=== PATIENT | male | born 1960 | race Caucasian/White ===

== ENCOUNTER 2019-04-16 20:38 | Observation (INO) | payer OTHER, SELFPAY ==
[2019-04-16 20:39] VITALS: BP 124/81; PULSE 90; RESP 17; TEMP 37.4; O2SAT 96; BMI 22.6
--- NOTE | 2019-04-16 20:51 | CT_ITS ---
STUDY: CT ABDOMEN AND PELVIS WITH CONTRAST REASON FOR EXAM: Male, 58 years old. Abdominal pain beginning this morning. RADIATION DOSAGE (If Supplied By Facility): CTDIvol = ( 11.94 ) mGy, DLP = ( 710.72 ) mGycm TECHNIQUE: Transaxial images were obtained from the dome of the diaphragm to the symphysis pubis with oral contrast. 100 IV/Oral Isovue 300 was administered. Sagittal and coronal images were reconstructed. Individualized dose optimization techniques were used for this CT. COMPARISON: None. FINDINGS: The visualized lung bases are unremarkable. The visualized portions of the heart are within normal limits. Normal liver. Normal gallbladder and extrahepatic biliary system. Normal spleen. Normal pancreas. Normal bilateral adrenal glands. Normal right kidney. Normal left kidney. Normal visualized stomach. Normal small intestine. Normal colon. The appendix is thickened and enlarged in size. There is marked stranding in the right lower quadrant. Normal abdominal aorta. Normal inferior vena cava. Normal retroperitoneum. Normal urinary bladder. Normal prostate. There is no pelvic lymphadenopathy or mass. No free air or free fluid is seen within the peritoneal cavity. Normal abdominal wall. Normal osseous structures. CT/Abdomen/Pelvis WITH Contrast IMPRESSION: Uncomplicated appendicitis. N.B. : The above information has been verbally conveyed by Daryl Ojeda DO to Vu Sorensen MD, on 04/16/2019 22:57:29 (ET). Electronically Signed: Daryl Ojeda DO at 22:58 EDT Tel [phone], Service support ,
[2019-04-16 21:10] LABS: Absolute Lymphocyte Count 1.71 X10^3/ul (0.83-4.51); Absolute Neutrophil Count 8.6 X10^3/uL (2.0-7.7); Basophil# 0.01 X10^3/uL; Basophil% 0.1 % (0-1); Eosinophil# 0.04 X10^3/uL; Eosinophils% 0.4 % (0-5); Hematocrit 45.4 % (40-54); Hemoglobin 15.9 g/dl (13.0-16.5); Lymphocyte # 1.71 X10^3/ul (4.0); Lymphocyte % 15.1 % (19-41); Mean Corpuscular Hgb 32.1 pg (27.0-32.0); Mean Corpuscular Volume 91.5 fL (80-94); Mean Platelet Vol. 10.1 fl (6.2-12.0); Monocyte# 0.91 X10^3/uL; Neutrophil # 8.64 X10^3/uL (2.7-7.7); Neutrophil % 76.3 % (47-70); Platelet Count 157 K/mm3 (150-450); RBC Distribution Width CV 12.3 % (11.6-14.6); RBC Distribution Width SD 40.6 fl (35.1-43.9); Red Blood Count 4.96 M/mm3 (4.6-6.2); White Blood Count 11.3 K/mm3 (4.4-11.0)
[2019-04-16 21:11] LABS: POSITIVE COUNT NO; POSITIVE DIFFERENTIAL NO; POSITIVE MORPHOLOGY NO
[2019-04-16 21:28] LABS: ALB/GLOB Ratio 1.2 RATIO (0.9-2.4); AST(SGOT) 16 U/L (15-37); Alanine Aminotransfer ALT/SGPT 22 U/L (16-61); Alkaline Phosphatase 80 U/L (45-117); Anion Gap 3 (5-15); BUN 15 mg/dL (7-18); BUN/Creat Ratio 15.7 RATIO (10-20); Calcium,Total 9.3 mg/dL (8.5-10.1); Chloride 107 mmol/L (98-107); Creatinine, Serum 0.96 mg/dL (0.70-1.30); EST Glomerular Filtration Rate 86 mL/min (>60); Est Glom Filt Rate - Afr Amer 104 mL/min (>60); Estimated Creatinine Clearance 86.77 ml/min; Globulin 3.4 g/dL (2.2-4.2); Glucose 113 mg/dL (74-106); Potassium 3.6 mmol/L (3.5-5.1); Protein, Total 7.4 g/dL (6.4-8.2); Sodium Level 138 mmol/L (136-145)
[2019-04-16] MEDS: Morphine 4 MG/ML Syringe IV (21:40)
[2019-04-16] MEDS: Ondansetron 4 MG/2 ML Vial IV (21:40)
[2019-04-16] MEDS: 0.9% Normal Saline 1,000 ML 1000 ML IV (21:40)
--- NOTE | 2019-04-16 21:45 | ED.VIS.GEN ---
History of Present Illness Chief Complaint: Abd Pain Informant: Patient Onset: Today Context: Gradual Onset Timing: Continuous Current Severity: Moderate Maximum Severity: Severe Associated Symptoms: nausea Narrative: Patient presents to the emergency department with abdominal pain that has migrated to his right lower quadrant. The patient is otherwise healthy. He has no significant medical or surgical history. He states today, at about 630 this morning, he had some diffuse cramping abdominal pain. He states he is mildly constipated which is not his normal symptoms. He states throughout the day, the pain seemed to migrate to his right lower quadrant. He does admit to some chills and sweats. He is also been nauseated. He states he is never had symptoms like this before. Prior similar symptoms: No Recent Illness/Hospitalization: No Past Medical History - Allergies and Home Meds Allergies/Adverse Reactions: Allergies No Known Allergies Allergy (Verified 04/16/19 20:38) Primary Care Physician: Keith Vivas MD [Primary Care Provider] - Prior records reviewed: Yes Past Medical History: None Surgical History: no surgical history Lives: With Family Smoking Status: Never smoker Alcohol: None Drugs: None Review of Systems General: Reports: Chills Eyes: Denies: Visual changes - bilaterally, Diplopia ENT: Denies: Rhinorrhea, Sore throat Cardiovascular: Denies: Chest pain, Palpitations Respiratory: Denies: Dyspnea, Cough, Dyspnea on exertion Gastrointestinal: Reports: Abdominal pain, Nausea Genitourinary: Denies: Dysuria, Hematuria, Frequency Musculoskeletal: Denies: Back pain, Extremity Pain Skin: Denies: Rash, Wounds Neurological: Denies: Headache, Weakness, Numbness Psych: Denies: Depression Endocrine: Denies: Polyuria Physical Exam Vital Signs/Narrative: Vital Signs Temp Pulse Resp BP Pulse Ox 04/16/19 20:39 99.4 F H 90 17 124/81 H 96 Inital Vital Signs reviewed: Yes General: Well nourished, Well developed, No Acute Distress Head: Normocephalic, Atraumatic Eyes: Perrl, EOMI ENT: Moist mucous membranes, No rhinorrhea Neck: Supple, Nontender Cardiovascular: Regular rate, Regular rhythm, No murmurs Respiratory: No distress, CTA bilaterally, Chest nontender Abdomen: Soft, Nondistended, Normal bowel sounds, Tender, Rebound tenderness Back: Nontender, Normal Inspection Extremities: Nontender, No edema Skin: Normal color, No rash Neurological: Alert, Oriented x3, Cranial nerves II-XII grossly intact, Normal Strength, Normal Sensation Psychological: Normal affect, Normal Mood Diagnostic/Tx/Re-eval Clinical Impression(s) from Imaging Studies Abdomen/Pelvis CT 04/16/19 20:51 IMPRESSION: Uncomplicated appendicitis. N.B. : The above information has been verbally conveyed by Daryl Ojeda DO to Vu Sorensen MD, on 04/16/2019 22:57:29 (ET). Electronically Signed: Daryl Ojeda DO at 22:58 EDT Tel [phone], Service support , ADDENDUM: 04/16/19 230 IMPRESSION: Uncomplicated appendicitis. N.B. : The above information has been verbally conveyed by Daryl Ojeda DO to Vu Sorensen MD, on 04/16/2019 22:57:29 (ET). Electronically Signed: Daryl Ojeda DO at 22:58 EDT Tel [phone], Service support , Abnormal Lab Results 04/16/19 04/16/19 04/16/19 21:01 21:01 21:45 WBC 11.3 H RBC 4.96 Hgb 15.9 Hct 45.4 MCV 91.5 MCH 32.1 H MCHC 35.0 RDW 12.3 RDW Differential 40.6 Plt Count 157 MPV 10.1 Immature Gran % (Auto) 0.100 Neut % (Auto) 76.3 H Lymph % (Auto) 15.1 L [place] % (Auto) 8.0 Eos % (Auto) 0.4 Baso % (Auto) 0.1 Absolute Neuts (auto) 8.6 H Absolute Lymphs (auto) 1.71 Total Counted Not Reportable Sodium 138 Potassium 3.6 Chloride 107 Carbon Dioxide 28.0 Anion Gap 3 L BUN 15 Creatinine 0.96 Estim Creat Clear Calc 86.77 Est GFR (MDRD) Af Amer 104 Est GFR (MDRD) Non-Af 86 BUN/Creatinine Ratio 15.7 Glucose 113 H Calcium 9.3 Total Bilirubin 0.60 AST 16 ALT 22 Alkaline Phosphatase 80 Total Protein 7.4 Albumin 4.0 Globulin 3.4 Albumin/Globulin Ratio 1.2 Urine Color Yellow Urine Clarity Clear Urine pH 7.0 Ur Specific [place] 1.015 Urine Protein Negative Urine Glucose (UA) 250 H Urine Ketones 5 H Urine Occult Blood Negative Urine Nitrite Negative Urine Bilirubin Negative Urine Urobilinogen Normal Ur Leukocyte Esterase Negative Urine RBC 0-5 SEEN Urine WBC 0 SEEN Ur Squamous Epith Cells 0 SEEN Urine Bacteria RARE Urine Mucus RARE - Medical Decision Making Patient presents with pain that migrated to his right lower quadrant. He is tender in this area. He has had a low-grade fever and chills. My suspicion was for acute appendicitis. Screening labs were obtained. Patient does have a mild leukocytosis. CT does confirm acute appendicitis. The patient was covered with broad-spectrum antibiotics. I did discuss the patient with Dr. Gorman. He agrees with plan for admission plan will be for OR first thing in the morning. The patient is comfortable with this plan of care. ED Disposition - Plan for ED Patient: Disposition: Acute Care [facility] Diagnosis: Acute appendicitis Referrals: Keith Vivas MD [Primary Care Provider] -
[2019-04-16 21:51] LABS: Squamous Epithelial Cells - UA 0 SEEN /hpf (0-5); White Blood Cells 0 SEEN /hpf (0-5)
[2019-04-16 21:55] LABS: Color, Urine Yellow (Yellow); Glucose, Dipstick 250 mg/dl (Normal); Ketone-Dipstick 5 mg/dl (Negative); Leukocyte Esterase-Dipstick Negative /ul (Negative); Nitrite-Dipstick Negative (Negative); Occult Blood-Urine Negative /ul (Negative); Protein-Dipstick Negative (Negative); Specific Gravity, Urine 1.015 (1.002-1.030); Urine Bilirubin Dipstick Negative (Negative); Urine Clarity Clear (Clear); Urine Urobilinogen Normal (Normal)
[2019-04-16 22:03] LABS: Bacteria RARE /hpf (None Seen); Mucous, Urine RARE /hpf (<or=2+); Red Blood Cells-Urine 0-5 SEEN /hpf (0-5)
[2019-04-16] MEDS: HYDROmorphone 0.5 MG/0.5 ML SYRINGE IV (23:11)
[2019-04-16] MEDS: Lactated Ringers 1,000 ML 150 ML IV (23:11)
[2019-04-16 23:13] VITALS: BP 114/73; PULSE 78; RESP 16; TEMP 36.9; O2SAT 98
[2019-04-16 23:34] VITALS: BMI 23.3
[2019-04-16 23:42] VITALS: BP 96/57; PULSE 78; RESP 16; TEMP 36.5; O2SAT 96
[2019-04-17] VITALS (8 sets, daily range): BP systolic 95–110; BP diastolic 49–70; PULSE 63–79; RESP 14–16; TEMP 36.1–36.9; O2SAT 92–99; BMI 23.3
[2019-04-17] MEDS: 0.9% NaCl Peripheral Flush Adult/Peds IV ×3 (00:35→13:19)
[2019-04-17] MEDS: Lactated Ringers 1,000 ML 150 ML IV ×2 (00:35→05:22)
--- NOTE | 2019-04-17 04:00 | EKG12_ITS ---
Test Reason : AM EKG Blood Pressure : / mmHG Vent. Rate : 073 BPM Atrial Rate : 073 BPM P-R Int : 154 ms QRS Dur : 092 ms QT Int : 418 ms P-R-T Axes : 066 073 067 degrees QTc Int : 460 ms Normal sinus rhythm Normal ECG No previous ECGs available Confirmed by BRYCE CAVAZOS ([id number]), graphic editor PONCHO BLANCAS ([id number]) on 04/19/2019 1:51:40 PM Referred By: Iraj Caraballo Confirmed By:BRYCE CAVAZOS
[2019-04-17] MEDS: Morphine 4 MG/ML Syringe IV (04:06)
--- NOTE | 2019-04-17 05:03 | PCM.HP.STD ---
History of Present Illness Date of Admission: 04/17/19 Chief Complaint: appendicitis The patient is a 58 year old M with a 1 day history of pain migrating to the RLQ. He presented to [facility] ER - CT scan demonstrated appendicitis. He has no other significant medical issues Past Medical History Allergies No Known Allergies Allergy (Verified 04/16/19 20:38) Home Medications: Ambulatory Orders Medication Instructions Recorded NK 04/16/19 Surgical History: no surgical history Lives: With Family Smoking Status: Never smoker Alcohol: None Drugs: None Review of Systems Constitutional: Denies: Chills, Fever, Weight Change HEENT: Denies: Head Aches, Sinus Congestion, Sinus Drainage Cardiovascular: Denies: Chest Pain, Palpitations Respiratory: Denies: Cough, Shortness of breath at rest, Sputum production Gastrointestinal: Denies: Abdominal Pain, Nausea, Vomiting Genitourinary: Denies: Dysuria Musculoskeletal: Denies: Joint Pain, Joint Tenderness Skin: Denies: Rash, Wounds Neurological: Denies: Numbness, Tingling, Focal weakness Psychiatric: Denies: Anxiety, Depression, Homicidal Ideations, Suicidal Ideations Hematologic/ Lymphatic: Denies: Easy Bruising, Easy Bleeding VTE Information - Inpt Only VTE Present on Admission: No VTE Mechan Device Prophylaxis: SCD's VTE Pharm Prophylaxis ordered?: No Patient Problems: Active and Suspected Problems Acute appendicitis (Acute) - Physical Exam General: Alert, Oriented x3, Cooperative HEENT: Atraumatic, PERRLA, EOMI, Normocephalic Neck: Supple, No JVD, Negative Carotid Bruits Lungs: Clear to auscultation, Normal air movement Cardiovascular: Regular rate, No murmurs Abdomen: Bowel Sounds Present, Soft, Tender - RLQ Extremities: No edema, Capillary Refill Less than 3 Seconds Skin: No rashes, No breakdown Musculoskeletal: No Tenderness to Palpation of Joints or Extremities Neurological: Cranial nerves II-XII grossly intact Psych/Mental Status: Normal Affect, Appropriate Vital Signs Temp Pulse Resp BP Pulse Ox 98.4 F 67 16 109/57 L 95 04/17/19 04:11 04/17/19 04:11 04/17/19 04:11 04/17/19 04:11 04/17/19 04:11 Oxygen Delivery Method Room Air Weight: 73.7 kg Body Mass Index (BMI) 23.3 Laboratory Tests Past 24 Hrs 04/16/19 04/16/19 04/16/19 21:01 21:01 21:45 WBC 11.3 H RBC 4.96 Hgb 15.9 Hct 45.4 MCV 91.5 MCH 32.1 H MCHC 35.0 RDW 12.3 RDW Differential 40.6 Plt Count 157 MPV 10.1 Immature Gran % (Auto) 0.100 Neut % (Auto) 76.3 H Lymph % (Auto) 15.1 L [place] % (Auto) 8.0 Eos % (Auto) 0.4 Baso % (Auto) 0.1 Absolute Neuts (auto) 8.6 H Absolute Lymphs (auto) 1.71 Total Counted Not Reportable Sodium 138 Potassium 3.6 Chloride 107 Carbon Dioxide 28.0 Anion Gap 3 L BUN 15 Creatinine 0.96 Estim Creat Clear Calc 86.77 Est GFR (MDRD) Af Amer 104 Est GFR (MDRD) Non-Af 86 BUN/Creatinine Ratio 15.7 Glucose 113 H Calcium 9.3 Total Bilirubin 0.60 AST 16 ALT 22 Alkaline Phosphatase 80 Total Protein 7.4 Albumin 4.0 Globulin 3.4 Albumin/Globulin Ratio 1.2 Urine Color Yellow Urine Clarity Clear Urine pH 7.0 Ur Specific [place] 1.015 Urine Protein Negative Urine Glucose (UA) 250 H Urine Ketones 5 H Urine Occult Blood Negative Urine Nitrite Negative Urine Bilirubin Negative Urine Urobilinogen Normal Ur Leukocyte Esterase Negative Urine RBC 0-5 SEEN Urine WBC 0 SEEN Ur Squamous Epith Cells 0 SEEN Urine Bacteria RARE Urine Mucus RARE Assessment/Plan All Active Problems Acute appendicitis (Acute) appendicitis I plan to perform a laparoscopic appendectomy. The patient understands the risks, benefits, possible complications and consents to the planned procedure. Given Lynnette, SCDs
[2019-04-17] MEDS: Piperacil/Tazobactam 3.375 GM Q8 PREMIX IV (05:22)
--- NOTE | 2019-04-17 05:30 | APP_PTH ---
PATIENT: RODNEY TORRES LOC: MS2 U#:[id number] AGE/SX: 58/M ROOM: [id number] RE04/16/[address]: Dr. Iraj Caraballo MD : 1960 BED: 1 DIS: 04/17/2019 SPEC #: [id number] RECD: 04/17/19 08:29 STATUS: UZAIR REJaleesa #: [id number] DIONE: 04/17/19 05:[address]: Iraj Caraballo DEPT: SURGICAL PATHOLOGY RECD BY: Michele Watkins ENTERED: 04/17/19 14:12 SP TYPE: APPENDIX OTHR DR: Dr. Keith Vivas MD Tissues: Appendix, NOS Procedures: Surgery Specimen Level III HEADER OPERATION: Laparoscopic appendectomy PRE-OP DIAGNOSIS: Acute appendicitis TISSUE SUBMITTED: Appendix MICROSCOPIC DIAGNOSIS Appendix, appendectomy: Acute necrotizing appendicitis. Acute serositis. AM:cierra 04/18/19 MICROSCOPIC DESCRIPTION Slides are reviewed. GROSS DESCRIPTION Received is one container labeled with the patient's name and designated appendix. The specimen consists of an appendix with attached periappendiceal adipose tissue measuring 5 cm in length and 0.7 cm in diameter. The attached periappendiceal adipose tissue measures up to 1.5 cm in width. The serosa is congested and covered with moctezuma, purulent exudate. No obvious perforation is identified. The mucosa is congested. No fecalith is identified. Cotton Converter sections are submitted in one cassette. / SJ:cierra 04/17/19 TC:2 CPT: 12350
[2019-04-17] MEDS: Bupivacaine 0.5% PF 10 ML VIAL (06:24)
--- NOTE | 2019-04-17 06:28 | OP.PCM_ITS ---
Report of Operation Date of Procedure: 04/17/19 Pre-Operative Diagnosis: appendicitis Post-Operative Diagnosis: appendicitis - retrocecal Surgery/Procedure Performed:: laparoscopic appendectomy director of advertising sales: None Type of Anesthesia:: General Anesthesiologist: Curtis LentzE Specimen's removed: appendix Estimated Blood Loss (mL): minimal Fluids Replaced: 700 Description of Procedure: The patient was brought to the operating suite. Sign in was performed verifying patient, site, procedure, position, and DVT prophylaxis with SCDs. Patient received 4.5 g Zosyn for presumed appendicitis. Following induction of general anesthetic. The patient?s abdomen was prepped and draped in the usual fashion. Timeout was performed verifying patient, site, position. Local anesthetic was injected below the umbilicus. Incision made and dissection carried down to the umbilical root fascia. 2 stay sutures were placed. Incision made in the fascia, the peritoneum entered under direct visualization. A 10 mm Diaz trocar was inserted and secured with the stay sutures. Pneumoperitoneum to 15 mmHg was insufflated. 2 5mm ports were placed in the standard position. Visual inspection revealed a lateral appendix attached to the retroperitoneum but not retrocecal. the retroperitoneal attachments were mobilized with Harmonic scalpel. A window was made between the base the mesoappendix and the base of the appendix transected with the intestinal load Endo ELIZABETH stapler at the base of the cecum. The mesoappendix was transected with a harmonic scalpel. The appendix was placed in an Endobag and removed through the umbilical port site. An 0 PDS [id number] suture was placed around the umbilical port site defect. Pneumoperitoneum was reestablished. The appendiceal area was checked for hemostasis. 5mm ports were removed under direct visualization with no signs o f bleeding. Pneumoperitoneum was released. The Diaz trocar was removed. The umbilical fascial suture was secured area did skin was closed with interrupted 4-0 Monocryl subcuticular sutures. Steri-Strips and bandages were applied. The patient was brought to recovery room in stable condition. - Admit VTE Documentation VTE Present on Admission: No VTE Mechan Device Prophylaxis: SCD's VTE Pharm Prophylaxis ordered?: No
--- NOTE | 2019-04-17 06:34 | DCINST_ITS ---
Discharge Diet: Light diet - advance as tolerated Discharge Activity: May Not Drive - for 3-5 days or while taking narcotic pain meds. May shower in (days): 1 Suture Line Care: Avoid Pulling/Pushing, Avoid Pinching/Bending Additional Dressing/Incision Instructions:: Keep dressing clean and dry. Change or remove dressing in 2 days. Leave steri strips for 1 week. May protect with a gauze bandaid. Medications to take at Discharge NK 04/16/19 Allergies/Adverse Reactions: Allergies No Known Allergies Allergy (Verified 04/16/19 20:38) Primary Care Physician: Keith Vivas MD [Primary Care Provider] - Test Results: Test results from this visit will be discussed in further detail at your follow- up appointment, if applicable. Please Follow Up With: Iraj Caraballo MD - [phone] When: Call to make a follow up appointment in 1 week.
[2019-04-17] MEDS: Ondansetron 4 MG/2 ML Vial IV (07:37)
[2019-04-17] MEDS: proCHLORPERazine 10 MG/2 ML Vial 5 MG IV (09:46)
[2019-04-17] MEDS: Lactated Ringers 1,000 ML 100 ML IV (09:46)
--- NOTE | 2019-04-17 12:47 | NURSING ---
Patient with persistent nausea, paged Dr. Caraballo at this time for recommendations.
[2019-04-17] MEDS: proMETHazine 25 MG/ML Syringe 12.5 MG IV (13:19)
== END 2019-04-17 17:50 | disposition home or self-care (01) ==
LOC: ED 23:10 → MS2 04-17 06:26
PROVIDERS: Admitting Provider Surgery; Emergency Provider Emergency Medicine; Family Provider Family Medicine; PCP Family Medicine; Referring Provider Surgery; Visit Provider Surgery
PROC: 0DTJ4ZZ Resection of Appendix, Percutaneous Endoscopic Approach (ICD-10-PCS; CPT 44970; principal; 2019-04-17 05:30)
DX: K35.80 Unspecified acute appendicitis (principal); K59.00 Constipation, unspecified
CPT/HCPCS: 00840; 44970; 74177; 80053; 81001; 85025; 88304; 93005; 96361; 96365; 96366; 96375; 96376; 99218; 99284; J7030; J7120; Q9967; A4216; G0378; J2405